=== PATIENT | female | born 1995 | race Caucasian/White ===

== ENCOUNTER 2017-02-04 10:48 | Inpatient (IN) | payer BC ==
[~2017-02-04] VITALS: Ht 162.6 cm; Wt 83.1 kg
[2017-02-04] MEDS ORDERED: BETAMETHASONE 6 MG/ML, 5ML IM ONE (12:39)
[2017-02-04] MEDS: BETAMETHASONE 6 MG/ML, 5ML IM SCH (13:14)
[2017-02-04] MEDS: LACTATED RINGERS 1,000 ML IV SCH (13:14)
[2017-02-04] MEDS: AMPICILLIN 2 GM in SODIUM CHLORIDE 0.9% 100 ML IV SCH ×2 (13:15→19:26)
[2017-02-04 13:27] LABS: HEMATOCRIT 36.5 % (34.6-47.8); HEMOGLOBIN 12.1 g/dL (11.7-16.4); WHITE BLOOD COUNT 10.1 x10^3/uL (4.5-13.2)
[2017-02-04 13:46] LABS: HIV 1&2 ANTIBODY SCREEN Nonreactive (Nonreactive); HIV-1 p24 ANTIGEN Nonreactive (Nonreactive)
[2017-02-04] MEDS ORDERED: ACETAMINOPHEN 325 MG TABLET PO PRN (14:00)
[2017-02-04] MEDS ORDERED: MAGNESIUM SULF. PMX 20GM/500ML 500 ML IV ONE ×2 (14:00→23:21)
[2017-02-04] MEDS: MAGNESIUM SULF. PMX 20GM/500ML 500 ML IV SCH ×2 (14:08→23:24)
[2017-02-04] MEDS ORDERED: CALCIUM GLUCONATE 4.6 MEQ/10 ML IV PRN (14:30)
[2017-02-04] MEDS: AZITHROMYCIN 500 MG in SODIUM CHLORIDE 0.9% 250 ML IV SCH (14:42)
[2017-02-05] MEDS: AMPICILLIN 2 GM in SODIUM CHLORIDE 0.9% 100 ML IV SCH ×3 (01:26→13:31)
[2017-02-05] MEDS ORDERED: PRENATAL VIT/IRON/FA 1 EACH TABLET ONE (09:02)
[2017-02-05] MEDS ORDERED: DOCUSATE 100 MG CAPSULE ONE (09:03)
[2017-02-05] MEDS ORDERED: SODIUM CHLORIDE NASAL SPRAY 45ML BOTTLE NAS PRN (09:30)
[2017-02-05] MEDS ORDERED: DOCU-131 PO (09:38)
[2017-02-05] MEDS ORDERED: PREN1TAB60 PO (09:38)
[2017-02-05] MEDS ORDERED: SODI45SP4 INH (09:40)
[2017-02-05] MEDS ORDERED: MAGNESIUM SULF. PMX 20GM/500ML 500 ML IV ONE ×2 (11:19→21:02)
[2017-02-05] MEDS: MAGNESIUM SULF. PMX 20GM/500ML 500 ML IV SCH ×2 (11:24→21:05)
[2017-02-05] MEDS: PRENATAL VIT/IRON/FA 1 EACH TABLET PO SCH (11:25)
[2017-02-05] MEDS: DOCUSATE 100 MG CAPSULE PO PRN (11:25)
[2017-02-05] MEDS: BETAMETHASONE 6 MG/ML, 5ML IM SCH (13:15)
[2017-02-05] MEDS: AZITHROMYCIN 500 MG in SODIUM CHLORIDE 0.9% 250 ML IV SCH (14:55)
[2017-02-05] MEDS: LACTATED RINGERS 1,000 ML IV SCH ×2 (16:50→20:30)
[2017-02-05] MEDS ORDERED: ZOLPIDEM 5MG TABLET ONE (19:44)
[2017-02-05] MEDS: AMPICILLIN 2 GM in SODIUM CHLORIDE 0.9% 50 ML IV SCH (19:46)
[2017-02-05] MEDS: ZOLPIDEM 5MG TABLET PO PRN (19:46)
[2017-02-06] MEDS: AMPICILLIN 2 GM in SODIUM CHLORIDE 0.9% 50 ML IV SCH ×4 (01:49→19:30)
[2017-02-06] MEDS: LACTATED RINGERS 1,000 ML IV SCH ×5 (04:30→20:30)
[2017-02-06] MEDS ORDERED: DOCUSATE 100 MG CAPSULE ONE (07:20)
[2017-02-06] MEDS ORDERED: PRENATAL VIT/IRON/FA 1 EACH TABLET ONE (07:20)
[2017-02-06] MEDS ORDERED: MAGNESIUM SULF. PMX 20GM/500ML 500 ML IV ONE (07:27)
[2017-02-06] MEDS: MAGNESIUM SULF. PMX 20GM/500ML 500 ML IV SCH (07:31)
[2017-02-06] MEDS: PRENATAL VIT/IRON/FA 1 EACH TABLET PO SCH (07:34)
[2017-02-06] MEDS: DOCUSATE 100 MG CAPSULE PO PRN (07:34)
[2017-02-06] MEDS ORDERED: NITROFURANTOIN (MACROBID) 100 MG CAPSULE PO SCH (10:30)
[2017-02-06] MEDS ORDERED: NITROFURANTOIN (MACROBID) 100 MG CAPSULE ONE ×2 (11:55→19:31)
[2017-02-06] MEDS: AZITHROMYCIN 500 MG in SODIUM CHLORIDE 0.9% 250 ML IV SCH (14:48)
[2017-02-06] MEDS ORDERED: NEWBORN KIT ONE (18:16)
[2017-02-06] MEDS: NITROFURANTOIN (MACROBID) 100 MG CAPSULE PO SCH (19:33)
[2017-02-06] MEDS ORDERED: OXYTOCIN 30U/ 0.9% NaCL 500ML 500 ML ONE (19:38)
[2017-02-06] MEDS ORDERED: MISOPROSTOL 200 MCG TABLET ONE (19:38)
[2017-02-06] MEDS ORDERED: LIDOCAINE 1%, 20ML ONE (19:38)
[2017-02-06] MEDS ORDERED: ZOLPIDEM 5MG TABLET ONE (20:19)
[2017-02-06] MEDS: ZOLPIDEM 5MG TABLET PO PRN (20:20)
[2017-02-07] MEDS: AMPICILLIN 2 GM in SODIUM CHLORIDE 0.9% 50 ML IV SCH ×2 (01:30→07:30)
[2017-02-07] MEDS: LACTATED RINGERS 1,000 ML IV SCH (04:30)
[2017-02-07] MEDS: PRENATAL VIT/IRON/FA 1 EACH TABLET PO SCH ×2 (09:00→11:55)
[2017-02-07] MEDS: NITROFURANTOIN (MACROBID) 100 MG CAPSULE PO SCH ×3 (09:00→20:53)
[2017-02-07] MEDS: AMOXICILLIN 500 MG CAPSULE PO SCH ×3 (09:00→20:54)
[2017-02-07] MEDS ORDERED: SODIUM CHLORIDE FLUSH 3ML SYRINGE IVF SCH (09:00)
[2017-02-07] MEDS: DOCUSATE 100 MG CAPSULE PO PRN ×2 (09:00→11:56)
[2017-02-07] MEDS ORDERED: PRENATAL VIT/IRON/FA 1 EACH TABLET ONE (11:50)
[2017-02-07] MEDS ORDERED: AMOXICILLIN 500 MG CAPSULE ONE ×2 (11:50→20:51)
[2017-02-07] MEDS ORDERED: NITROFURANTOIN (MACROBID) 100 MG CAPSULE ONE ×2 (11:54→20:51)
[2017-02-07] MEDS: AZITHROMYCIN 500 MG in SODIUM CHLORIDE 0.9% 250 ML IV SCH (13:36)
[2017-02-07] MEDS ORDERED: ZOLPIDEM 5MG TABLET ONE (21:58)
[2017-02-07] MEDS: ZOLPIDEM 5MG TABLET PO PRN (22:00)
[2017-02-08] MEDS ORDERED: AMOXICILLIN 500 MG CAPSULE ONE ×2 (07:45→21:15)
[2017-02-08] MEDS ORDERED: NITROFURANTOIN (MACROBID) 100 MG CAPSULE ONE ×3 (07:45→21:15)
[2017-02-08] MEDS: AMOXICILLIN 500 MG CAPSULE PO SCH ×2 (07:47→21:16)
[2017-02-08] MEDS: NITROFURANTOIN (MACROBID) 100 MG CAPSULE PO SCH ×2 (07:47→21:16)
[2017-02-08] MEDS ORDERED: PRENATAL VIT/IRON/FA 1 EACH TABLET ONE (07:49)
[2017-02-08] MEDS: PRENATAL VIT/IRON/FA 1 EACH TABLET PO SCH (07:51)
[2017-02-08] MEDS: AZITHROMYCIN 500 MG TABLET PO SCH (12:53)
[2017-02-08] MEDS ORDERED: ZOLPIDEM 5MG TABLET ONE (22:10)
[2017-02-08] MEDS: ZOLPIDEM 5MG TABLET PO PRN (22:13)
[2017-02-09 07:09] LABS: HEMATOCRIT 36.6 % (34.6-47.8)
[2017-02-09] MEDS ORDERED: AMOXICILLIN 500 MG CAPSULE ONE ×2 (09:00→20:45)
[2017-02-09] MEDS ORDERED: PRENATAL VIT/IRON/FA 1 EACH TABLET ONE (09:01)
[2017-02-09] MEDS ORDERED: DOCUSATE 100 MG CAPSULE ONE (09:01)
[2017-02-09] MEDS: AMOXICILLIN 500 MG CAPSULE PO SCH ×2 (09:03→22:29)
[2017-02-09] MEDS: DOCUSATE 100 MG CAPSULE PO PRN (09:04)
[2017-02-09] MEDS: PRENATAL VIT/IRON/FA 1 EACH TABLET PO SCH (09:04)
[2017-02-09] MEDS: AZITHROMYCIN 500 MG TABLET PO SCH (09:04)
[2017-02-09] MEDS ORDERED: ZOLPIDEM 5MG TABLET ONE (20:45)
[2017-02-09] MEDS: ZOLPIDEM 5MG TABLET PO PRN (22:28)
[2017-02-10] MEDS ORDERED: LACTATED RINGERS 1,000 ML IV SCH ×2 (00:07→00:39)
[2017-02-10] MEDS ORDERED: AMPICILLIN 2 GM in SODIUM CHLORIDE 0.9% 100 ML IVPB STA (00:07)
[2017-02-10] MEDS ORDERED: D5%-LACTATED RINGERS 1,000 ML IV SCH (00:07)
[2017-02-10] MEDS ORDERED: OXYTOCIN 30U/ 0.9% NaCL 500ML 500 ML IV ONE (00:07)
[2017-02-10] MEDS ORDERED: NEWBORN KIT ONE (00:11)
[2017-02-10] MEDS ORDERED: OXYTOCIN 30U/ 0.9% NaCL 500ML 500 ML ONE ×2 (00:12→08:19)
[2017-02-10] MEDS ORDERED: LIDOCAINE 1%, 20ML ONE (00:12)
[2017-02-10] MEDS ORDERED: FENTANYL PF 100 MCG/2ML ONE (00:12)
[2017-02-10] MEDS: LACTATED RINGERS 1,000 ML IV SCH ×3 (00:17→01:40)
[2017-02-10] MEDS ORDERED: FENTANYL PF 100 MCG/2ML IV PRN (00:30)
[2017-02-10] MEDS ORDERED: ONDANSETRON 2MG/ML, 2ML IVPush PRN (00:30)
[2017-02-10] MEDS ORDERED: FENTANYL PF 100 MCG/2ML IVPush PRN (00:30)
[2017-02-10] MEDS ORDERED: CALCIUM CARBONATE 500 MG TAB.CHEW PO PRN (00:30)
[2017-02-10 00:37] LABS: HEMATOCRIT 35.7 % (34.6-47.8); HEMOGLOBIN 11.8 g/dL (11.7-16.4); WHITE BLOOD COUNT 17.1 x10^3/uL (4.5-13.2)
[2017-02-10] MEDS ORDERED: FENTANYL/BUPIV./NS/PF 250 ML EPIDCONT SCH ×2 (00:39)
[2017-02-10] MEDS ORDERED: FENTANYL/BUPIV./NS/PF 250 ML EPIDCONT ONE ×2 (00:42→00:45)
[2017-02-10] MEDS ORDERED: BUPIVACAINE/PF 0.25% ONE (00:42)
[2017-02-10] MEDS ORDERED: BUPIVACAINE 0.25% ONE (00:45)
[2017-02-10 00:49] LABS: DIFF TOTAL CELLS COUNTED 100 CELL DIFF
[2017-02-10 00:50] LABS: VERIFY COUNTS? YES
[2017-02-10 00:51] LABS: ANISOCYTOSIS 1+; MICROCYTOSIS 1+; POLYCHROMASIA 1+
[2017-02-10] MEDS ORDERED: EPHEDRINE 50 MG/ML, 1ML IVPush PRN ×2 (01:00)
[2017-02-10] MEDS ORDERED: NALOXONE 0.4 MG/ML, 1ML IVPush PRN ×2 (01:00)
[2017-02-10] MEDS ORDERED: LACTATED RINGERS 1,000 ML IVBOLUS PRN ×2 (01:00)
[2017-02-10] MEDS: AMPICILLIN 1 GM in SODIUM CHLORIDE 0.9% 50 ML IVPB SCH (04:30)
[2017-02-10] MEDS ORDERED: MISOPROSTOL 200 MCG TABLET ONE (05:34)
[2017-02-10] MEDS ORDERED: OXYcodone/APAP 5/325MG TABLET PO PRN ×2 (07:00)
[2017-02-10] MEDS ORDERED: METHYLERGONOVINE 0.2 MG/ML IM PRN (07:00)
[2017-02-10] MEDS ORDERED: ACETAMINOPHEN 325 MG TABLET PO PRN (07:00)
[2017-02-10] MEDS ORDERED: ONDANSETRON 2MG/ML, 2ML IV PRN (07:00)
[2017-02-10] MEDS ORDERED: DOCUSATE 100 MG CAPSULE PO PRN (07:00)
[2017-02-10] MEDS ORDERED: OXYTOCIN 10 UNITS/ML, 1ML IM PRN (07:00)
[2017-02-10] MEDS ORDERED: MISOPROSTOL 200 MCG TABLET PR PRN (07:00)
[2017-02-10] MEDS ORDERED: CARBOPROST TROMETHAMINE 250 MCG/ML, 1ML IM PRN (07:00)
[2017-02-10] MEDS ORDERED: IBUPROFEN 600 MG TABLET ONE (07:29)
[2017-02-10] MEDS: IBUPROFEN 600 MG TABLET PO PRN ×2 (07:30→16:16)
[2017-02-10] MEDS ORDERED: OXYcodone/APAP 5/325MG TABLET ONE (08:21)
[2017-02-10] MEDS: OXYTOCIN 30U/ 0.9% NaCL 500ML 500 ML IV SCH ×2 (08:23→16:35)
[2017-02-10 08:40] VITALS: BP 139/87
[2017-02-10] MEDS: PRENATAL VIT/IRON/FA 1 EACH TABLET PO SCH (09:00)
[2017-02-10 13:54] VITALS: BP 134/83
[2017-02-10 15:40] LABS: DIFF TOTAL CELLS COUNTED 100 CELL DIFF; HEMOGLOBIN 12.2 g/dL (11.7-16.4); WHITE BLOOD COUNT 23.4 x10^3/uL (4.5-13.2)
[2017-02-10 15:43] LABS: ANISOCYTOSIS 1+; POLYCHROMASIA 1+; VERIFY COUNTS? YES
[2017-02-10 17:17] VITALS: BP 115/65
[2017-02-10 20:00] VITALS: BP 137/81
[2017-02-11 00:50] VITALS: BP 102/55
[2017-02-11] MEDS: OXYTOCIN 30U/ 0.9% NaCL 500ML 500 ML IV SCH ×2 (02:35→02:38)
[2017-02-11] MEDS: PRENATAL VIT/IRON/FA 1 EACH TABLET PO SCH (08:46)
[2017-02-11 09:29] VITALS: BP 132/87
[2017-02-11 09:55] LABS: HEMATOCRIT 36.3 % (34.6-47.8); HEMOGLOBIN 12.1 g/dL (11.7-16.4); WHITE BLOOD COUNT 15.8 x10^3/uL (4.5-13.2)
[2017-02-11] MEDS ORDERED: MEASLES,MUMPS&RUBELLA VACC/PF 0.5 ML SQ-VACC ONE (11:00)
[2017-02-11] MEDS ORDERED: DIPH,PERTUSS(ACELL),TET VAC/PF NC IM-VACC ONE (11:52)
== END 2017-02-11 14:55 | disposition home or self-care (01) | DRG 775 ==
LOC: LDOP 10:48 → LDIP 12:15 → 2NW 02-10 08:40
PROVIDERS: ADMIT Obstetrics & Gynecology; ATTEND Obstetrics & Gynecology
PROC: 10E0XZZ Delivery of Products of Conception, External Approach (ICD-10-PCS; principal; 2017-02-10)
PROC: 0HQ9XZZ Repair Perineum Skin, External Approach (ICD-10-PCS; 2017-02-10)
PROC: 3E0R3BZ Introduction of Anesthetic Agent into Spinal Canal, Percutaneous Approach (ICD-10-PCS; 2017-02-10)
PROC: 00HU33Z Insertion of Infusion Device into Spinal Canal, Percutaneous Approach (ICD-10-PCS; 2017-02-10)
DX: O42.013 Preterm premature rupture of membranes, onset of labor within 24 hours of rupture, third trimester (principal); E66.9 Obesity, unspecified; Z37.0 Single live birth; Z3A.33 33 weeks gestation of pregnancy; O99.214 Obesity complicating childbirth; O99.814 Abnormal glucose complicating childbirth; O70.0 First degree perineal laceration during delivery; O69.81X0 Labor and delivery complicated by cord around neck, without compression, not applicable or unspecified; O66.0 Obstructed labor due to shoulder dystocia; O99.824 Streptococcus B carrier state complicating childbirth; Z68.31 Body mass index [BMI] 31.0-31.9, adult
CPT/HCPCS: 36415; 76815; 81001; 82803; 83735; 84443; 85025; 85027; 86592; 86703; 86762; 86850; 86900; 87081; 87340; 87899; 88307; 89060; J0290; J0456; J0702; J3490; G0435; J2590; J3010; J3475; J7050; J7120; Q0114